=== PATIENT | female | born 1950 | race Two or more races ===

== ENCOUNTER 2023-09-30 12:42 | Inpatient (IN) | payer MEDICAID, OTHER ==
[~2023-09-30] VITALS: Ht 134.6 cm; Wt 55.0 kg
[2023-09-30 17:19] LABS: Urine Bacteria None Seen /hpf (None Seen)
[2023-09-30 17:27] LABS: Alanine Aminotransferase 29 U/L (7-40); Alkaline Phosphatase 94 U/L (46-116); Anion Gap 5 (5-15); Aspartate Aminotransferase 24 U/L (13-40); BUN/Creatinine Ratio 17.7 (10.0-20.0); Bilirubin, Total 0.3 mg/dL (0.2-1.0); Blood Urea Nitrogen 11 mg/dL (9-23); Calcium 8.7 mg/dL (8.7-10.4); Carbon Dioxide 25 mmol/L (20-30); Chloride 88 mmol/L (98-107); Glucose 242 mg/dL (74-106); Potassium 4.8 mmol/L (3.5-5.1); Total Protein 6.5 g/dL (5.7-8.2)
[2023-09-30 17:38] LABS: Lactic Acid w/Reflex 2.2 mmol/L (0.4-2.0); Sodium 118 mmol/L (136-145)
[2023-09-30 17:40] LABS: Urine Blood Negative /uL (Negative); Urine Clarity Clear (Clear); Urine Color Light-Yellow (Yellow); Urine Mucus FEW (None Seen); Urine Protein, UAD Negative (Negative); Urine Specific Gravity 1.016 (1.001-1.035); Urine Urobilinogen Normal (Negative); Urine WBC 2 /hpf (0 - 5)
[2023-09-30 17:48] LABS: Lipase 35 U/L (12-53)
[2023-09-30 18:18] VITALS: PULSE 82; RESP 18; O2SAT 97
[2023-09-30] MEDS: SODIUM CHL 3% 50 ML IV ONE (18:24)
[2023-09-30 18:56] LABS: Basophils # (auto) 0 10 ^3/uL (0-0.2); Basophils % (auto) 0.4 % (0.0-2.0); Eosinophils # (auto) 0 10 ^3/uL (0-0.8); Hematocrit 27.9 % (36.0-46.0); Hemoglobin 9.9 g/dL (12.2-16.2); Lymphocytes # (auto) 2.5 10 ^3/uL (0.4-5.4); Lymphocytes % (auto) 23.8 % (10.0-50.0); Mean Corpuscular Hgb Conc. 35.5 g/dL (32.0-36.0); Mean Corpuscular Volume 92.9 fL (80.0-100.0); Monocytes # (auto) 0.7 10 ^3/uL (0-1.3); Monocytes % (auto) 6.7 % (0.0-12.0); Neutrophils # (auto) 7.2 10 ^3/uL (1.6-8.6); Neutrophils % (auto) 69.1 % (37.0-80.0); Nucleated Red Blood Cells % 0.1 %; Red Cell Distribution Width 14.5 % (11.8-14.3); White Blood Cell 10.4 10^3/uL (4.4-10.8)
[2023-09-30 19:15] VITALS: O2SAT 97
[2023-09-30] MEDS: LOSARTAN POTASSIUM 50 MG TAB PO ONE (20:43)
[2023-09-30] MEDS ORDERED: MORPHINE SULFATE INJ 2 MG/ml SYRG IV PRN (21:00)
[2023-09-30] MEDS ORDERED: ONDANSETRON HCL 4 MG/2 ML VIAL IV PRN (21:00)
[2023-09-30] MEDS ORDERED: NITROGLYCERIN 0.4 MG SL TAB SL PRN (21:00)
[2023-09-30] MEDS: SODIUM CHLORIDE 0.9% 1,000 ML IV SCH (21:59)
[2023-09-30] MEDS: ASCORBIC ACID 500 MG TAB PO SCH (22:00)
[2023-09-30] MEDS: SODIUM CHLORIDE 1 GM TAB PO ONE (22:38)
[2023-10-01 05:56] LABS: Basophils # (auto) 0.1 10 ^3/uL (0-0.2); Basophils % (auto) 0.7 % (0.0-2.0); Eosinophils # (auto) 0 10 ^3/uL (0-0.8); Eosinophils % (auto) 0.3 % (0.0-7.0); Hematocrit 28.4 % (36.0-46.0); Lymphocytes # (auto) 3.3 10 ^3/uL (0.4-5.4); Lymphocytes % (auto) 30.6 % (10.0-50.0); Mean Corpuscular Hemoglobin 33.3 pg (28.0-32.0); Mean Corpuscular Hgb Conc. 35.4 g/dL (32.0-36.0); Mean Corpuscular Volume 94.3 fL (80.0-100.0); Monocytes # (auto) 0.9 10 ^3/uL (0-1.3); Monocytes % (auto) 8.8 % (0.0-12.0); Neutrophils # (auto) 6.4 10 ^3/uL (1.6-8.6); Neutrophils % (auto) 59.6 % (37.0-80.0); Nucleated Red Blood Cells % 0.1 %; Red Blood Cells 3.01 10^6/uL (4.0-5.20); Red Cell Distribution Width 14.6 % (11.8-14.3); White Blood Cell 10.8 10^3/uL (4.4-10.8)
[2023-10-01 06:15] LABS: Alanine Aminotransferase 26 U/L (7-40); Albumin 3.4 g/dL (3.2-4.8); Alkaline Phosphatase 79 U/L (46-116); Anion Gap 7 (5-15); Calcium 8.3 mg/dL (8.7-10.4); Carbon Dioxide 25 mmol/L (20-30); Chloride 92 mmol/L (98-107); Glucose 104 mg/dL (74-106); Potassium 3.8 mmol/L (3.5-5.1)
[2023-10-01 06:16] LABS: Aspartate Aminotransferase 19 U/L (13-40); Bilirubin, Total 0.3 mg/dL (0.2-1.0); Total Protein 5.7 g/dL (5.7-8.2)
[2023-10-01 06:49] LABS: Sodium 124 mmol/L (136-145)
[2023-10-01 06:50] LABS: BUN/Creatinine Ratio 10.9 (10.0-20.0); Blood Urea Nitrogen < 5 mg/dL (9-23)
[2023-10-01 08:00] VITALS: PULSE 87; RESP 20; O2SAT 99
[2023-10-01] MEDS: MULTIPLE VITAMIN TAB PO SCH (10:51)
[2023-10-01] MEDS: LOSARTAN POTASSIUM 50 MG TAB PO SCH (10:52)
[2023-10-01 16:10] VITALS: PULSE 103; RESP 19; O2SAT 94
[2023-10-01 16:22] VITALS: BP 159/54; PULSE 103; RESP 19; TEMP 97.7; O2SAT 94
[2023-10-01] MEDS: hydrALAZINE HCL 20 MG/ML VL IV PRN (16:27)
[2023-10-01] MEDS ORDERED: LOSA-534 PO (18:14)
[2023-10-01] MEDS ORDERED: PRE5T PO (18:14)
[2023-10-01] MEDS ORDERED: ZINC50TA27 PO (18:14)
[2023-10-01] MEDS ORDERED: METF-370 PO (18:14)
[2023-10-01] MEDS ORDERED: DEXTROSE (50%) 50ML SYRG IV PRN (19:15)
[2023-10-01 20:00] VITALS: PULSE 112; PULSE 123; RESP 18; O2SAT 98
[2023-10-01 21:00] VITALS: BP 129/41; PULSE 117; RESP 18; TEMP 98.1; O2SAT 96
[2023-10-01] MEDS: ENOXAPARIN SOD 40 MG/0.4 ML SYRINGE SC SCH (21:38)
[2023-10-01] MEDS: ACCU-CHEK COMFORT CURVE STRIP VI SCH (21:39)
[2023-10-01] MEDS: InsuLIN REG 1unit/0.01ml Soln (100units/ml) SC SCH (23:11)
[2023-10-02] VITALS (10 sets, daily range): BP systolic 105–180; BP diastolic 44–70; PULSE 100–112; RESP 17–22; TEMP 97.3–98.7; O2SAT 92–99
[2023-10-02] MEDS: ACETAMINOPHEN 325 MG TAB PO PRN (10:39)
[2023-10-02] MEDS: UREA 15gm PO Powder PKG PO SCH (11:41)
[2023-10-02] MEDS ORDERED: Ensure HIGH Protein Chocolate 8oz Bottle PO SCH (18:00)
[2023-10-02] MEDS: ACCU-CHEK COMFORT CURVE STRIP VI SCH (18:19)
[2023-10-02] MEDS: InsuLIN REG 1unit/0.01ml Soln (100units/ml) SC SCH (18:20)
[2023-10-02] MEDS: Glucerna Carbsteady SHAKE Vanilla 8oz PO SCH (18:20)
[2023-10-02] MEDS ORDERED: metFORMIN HYDROCHLORIDE 500 MG TAB PO SCH (22:00)
[2023-10-03] VITALS (9 sets, daily range): BP systolic 135–170; BP diastolic 48–85; PULSE 101–117; RESP 17–20; TEMP 97.4–98.7; O2SAT 92–98
[2023-10-03 07:05] LABS: Anion Gap 8 (5-15); Carbon Dioxide 25 mmol/L (20-30); Chloride 90 mmol/L (98-107); Potassium 3.2 mmol/L (3.5-5.1); Sodium 123 mmol/L (136-145)
[2023-10-03 07:06] LABS: Calcium 9.8 mg/dL (8.7-10.4)
[2023-10-03 07:11] LABS: BUN/Creatinine Ratio 55.6 (10.0-20.0); Blood Urea Nitrogen 30 mg/dL (9-23); Glucose 194 mg/dL (74-106)
[2023-10-03] MEDS: LOSARTAN POTASSIUM 50 MG TAB PO SCH (09:25)
[2023-10-03] MEDS: predniSONE 5 MG TAB PO SCH (09:25)
[2023-10-03] MEDS: ZINC 50 MG PO SCH (12:42)
[2023-10-03] MEDS: POTASSIUM CHL 20 Meq TABLET PO ONE (12:42)
[2023-10-03] MEDS: [UNRECOGNIZED DRUG - OTHER] PO SCH (12:42)
[2023-10-03 14:10] LABS: Chloride 87 mmol/L (98-107); Potassium 3.4 mmol/L (3.5-5.1); Sodium 123 mmol/L (136-145)
[2023-10-03 14:11] LABS: Anion Gap 10 (5-15); Calcium 10.3 mg/dL (8.7-10.4); Carbon Dioxide 26 mmol/L (20-30)
[2023-10-03 14:16] LABS: BUN/Creatinine Ratio 39.3 (10.0-20.0); Blood Urea Nitrogen 24 mg/dL (9-23); Glucose 255 mg/dL (74-106)
[2023-10-04] VITALS (7 sets, daily range): BP systolic 115–148; BP diastolic 59–79; PULSE 99–116; RESP 16–20; TEMP 97.7–98.8; O2SAT 95–98
[2023-10-04 06:20] LABS: Chloride 91 mmol/L (98-107); Potassium 4.5 mmol/L (3.5-5.1); Sodium 125 mmol/L (136-145)
[2023-10-04 06:21] LABS: Anion Gap 8 (5-15); Calcium 10.7 mg/dL (8.7-10.4); Carbon Dioxide 26 mmol/L (20-30)
[2023-10-04 06:26] LABS: BUN/Creatinine Ratio 61.7 (10.0-20.0); Glucose 194 mg/dL (74-106)
[2023-10-04 06:27] LABS: Blood Urea Nitrogen 37 mg/dL (9-23)
[2023-10-04] MEDS ORDERED: GLIM4TAB42 PO (14:03)
[2023-10-04] MEDS ORDERED: PYRI60TA3 PO (14:10)
[2023-10-04] MEDS ORDERED: NAPR-957 PO (14:11)
[2023-10-04] MEDS: PYRIDOstigmine BROMIDE 60 MG TAB PO SCH (17:36)
[2023-10-05 01:15] VITALS: BP 144/60; PULSE 102; RESP 17; TEMP 97.4; O2SAT 97
[2023-10-05 05:10] VITALS: BP 141/37; PULSE 94; RESP 16; TEMP 97.7; O2SAT 95
[2023-10-05 07:29] LABS: Chloride 94 mmol/L (98-107); Potassium 3.9 mmol/L (3.5-5.1); Sodium 129 mmol/L (136-145)
[2023-10-05 07:30] LABS: Anion Gap 7 (5-15); Calcium 10.4 mg/dL (8.7-10.4); Carbon Dioxide 28 mmol/L (20-30)
[2023-10-05 07:35] LABS: BUN/Creatinine Ratio 58.5 (10.0-20.0); Blood Urea Nitrogen 38 mg/dL (9-23); Glucose 159 mg/dL (74-106)
[2023-10-05 08:00] VITALS: PULSE 82; PULSE 90; RESP 17; O2SAT 97
[2023-10-05 09:00] VITALS: BP 122/63; PULSE 90; RESP 17; TEMP 98; O2SAT 97
[2023-10-05] MEDS: GLIMEPIRIDE 2 MG TAB PO SCH (10:04)
[2023-10-05] MEDS: METOPROLOL TARTRATE 25 MG TAB PO SCH (12:39)
[2023-10-05 13:00] VITALS: BP 113/60; PULSE 101; RESP 15; TEMP 98.3; O2SAT 97
[2023-10-05] MEDS ORDERED: LIDO5DIS21 TOP (15:36)
[2023-10-05 16:37] VITALS: BP 138/68; PULSE 82; RESP 17; TEMP 98.4; O2SAT 96
== END 2023-10-05 17:55 | disposition home or self-care (01) | DRG 426 ==
LOC: ER 12:42 → TELE 21:05 → TELE-EAST 10-01 15:33
PROVIDERS: ADMIT Internal Medicine; ATTEND Nurse Practitioner Acute Care
DX: E22.2 Syndrome of inappropriate secretion of antidiuretic hormone (principal); G70.00 Myasthenia gravis without (acute) exacerbation; M48.56XA Collapsed vertebra, not elsewhere classified, lumbar region, initial encounter for fracture; D64.9 Anemia, unspecified; E11.9 Type 2 diabetes mellitus without complications; E66.9 Obesity, unspecified; E78.5 Hyperlipidemia, unspecified; E86.1 Hypovolemia; I10 Essential (primary) hypertension; E87.6 Hypokalemia; Z79.52 Long term (current) use of systemic steroids; Z68.30 Body mass index [BMI] 30.0-30.9, adult
CPT/HCPCS: 36415; 71045; 80048; 80053; 81001; 82533; 82962; 83036; 83605; 83690; 83930; 83935; 84295; 84300; 84443; 84484; 84550; 85025; 93005; 96360; 97110; 97116; 97163; 97530; G0378; J1815

== ENCOUNTER 2023-11-24 15:56 | Inpatient (IN) | payer MEDICAID ==
[~2023-11-24] VITALS: Ht 144.8 cm; Wt 50.9 kg
[~2023-11-24 15:56] MED LIST: GLIM4TAB42 PO; LIDO5DIS21 TOP; LOSA-534 PO; METF-370 PO; NAPR-957 PO; PRE5T PO; PYRI60TA3 PO; ZINC50TA27 PO
[2023-11-24] MEDS: ONDANSETRON ODT 4 MG TAB PO ONE (17:21)
[2023-11-24] MEDS: DICYCLOMINE HCL (10MG/ML) 2 ML AMPULE IM ONE (17:21)
[2023-11-24 18:02] LABS: Basophils # (auto) 0 10 ^3/uL (0-0.2); Basophils % (auto) 0.3 % (0.0-2.0); Eosinophils # (auto) 0 10 ^3/uL (0-0.8); Eosinophils % (auto) 0.1 % (0.0-7.0); Hematocrit 38.5 % (36.0-46.0); Hemoglobin 11.9 g/dL (12.2-16.2); Lymphocytes # (auto) 1.2 10 ^3/uL (0.4-5.4); Lymphocytes % (auto) 7.9 % (10.0-50.0); Mean Corpuscular Hemoglobin 28.5 pg (28.0-32.0); Mean Corpuscular Volume 91.9 fL (80.0-100.0); Monocytes # (auto) 0.8 10 ^3/uL (0-1.3); Monocytes % (auto) 5.3 % (0.0-12.0); Neutrophils # (auto) 12.7 10 ^3/uL (1.6-8.6); Neutrophils % (auto) 86.4 % (37.0-80.0); Platelet Count (auto) 381 10^3/uL (140-450); Red Blood Cells 4.19 10^6/uL (4.0-5.20); Red Cell Distribution Width 16.5 % (11.8-14.3); White Blood Cell 14.6 10^3/uL (4.4-10.8)
[2023-11-24 18:08] LABS: Alanine Aminotransferase 41 U/L (7-40); Albumin 4.4 g/dL (3.2-4.8); Alkaline Phosphatase 135 U/L (46-116); Anion Gap 13 (5-15); Aspartate Aminotransferase 53 U/L (13-40); BUN/Creatinine Ratio 19.4 (10.0-20.0); Blood Urea Nitrogen 18 mg/dL (9-23); Calcium 9.6 mg/dL (8.7-10.4); Carbon Dioxide 18 mmol/L (20-30); Chloride 100 mmol/L (98-107); Glucose 192 mg/dL (74-106); Lipase 58 U/L (12-53); Potassium 4.8 mmol/L (3.5-5.1); Sodium 131 mmol/L (136-145)
[2023-11-24 18:09] LABS: Bilirubin, Total 0.2 mg/dL (0.2-1.0); Total Protein 7.2 g/dL (5.7-8.2)
[2023-11-24 18:32] LABS: Lactic Acid w/Reflex 7.5 mmol/L (0.4-2.0)
[2023-11-24 22:00] LABS: Urine Bacteria FEW /hpf (None Seen); Urine Blood Negative /uL (Negative); Urine Clarity Turbid (Clear); Urine Color Yellow (Yellow); Urine Mucus FEW (None Seen); Urine Protein, UAD 1+ (Negative); Urine Specific Gravity 1.022 (1.001-1.035); Urine Urobilinogen Normal (Negative); Urine WBC 7 /hpf (0 - 5)
[2023-11-24] MEDS: SODIUM CHLORIDE 0.9% 1,000 ML IV ONE (22:23)
[2023-11-24] MEDS: cefTRIAXone 1GM/50ML D5W 50 ML IV ONE (22:58)
[2023-11-25] VITALS (7 sets, daily range): BP systolic 139–159; BP diastolic 60–81; PULSE 83–103; RESP 16–18; TEMP 97.7–98.4; O2SAT 92–99
[2023-11-25] MEDS ORDERED: ACETAMINOPHEN 325 MG TAB PO PRN (03:15)
[2023-11-25] MEDS ORDERED: HYDROcodone-ACET 5/325MG TAB PO PRN (03:15)
[2023-11-25] MEDS ORDERED: ONDANSETRON HCL 4 MG/2 ML VIAL IV PRN (03:15)
[2023-11-25] MEDS ORDERED: MORPHINE SULFATE INJ 2 MG/ml SYRG IV PRN (03:15)
[2023-11-25] MEDS ORDERED: DOCUSATE SOD 100 MG CAP PO PRN (03:15)
[2023-11-25] MEDS ORDERED: DEXTROSE (50%) 50ML SYRG IV PRN (03:15)
[2023-11-25] MEDS ORDERED: IBUPROFEN 600 MG TAB PO PRN (03:15)
[2023-11-25] MEDS ORDERED: NITROGLYCERIN 0.4 MG SL TAB SL PRN (03:15)
[2023-11-25] MEDS: SODIUM CHLORIDE 0.9% 500 ML IV ONE (03:30)
[2023-11-25 04:10] LABS: Basophils # (auto) 0.1 10 ^3/uL (0-0.2); Basophils % (auto) 0.8 % (0.0-2.0); Eosinophils # (auto) 0 10 ^3/uL (0-0.8); Eosinophils % (auto) 0.2 % (0.0-7.0); Hematocrit 32.2 % (36.0-46.0); Hemoglobin 10.4 g/dL (12.2-16.2); Lymphocytes % (auto) 35.3 % (10.0-50.0); Mean Corpuscular Hemoglobin 28.8 pg (28.0-32.0); Mean Corpuscular Hgb Conc. 32.4 g/dL (32.0-36.0); Mean Corpuscular Volume 88.9 fL (80.0-100.0); Monocytes # (auto) 0.7 10 ^3/uL (0-1.3); Monocytes % (auto) 6.1 % (0.0-12.0); Neutrophils # (auto) 6.5 10 ^3/uL (1.6-8.6); Neutrophils % (auto) 57.6 % (37.0-80.0); Nucleated Red Blood Cells % 0.2 %; Platelet Count (auto) 388 10^3/uL (140-450); Red Blood Cells 3.62 10^6/uL (4.0-5.20); Red Cell Distribution Width 17.1 % (11.8-14.3); White Blood Cell 11.4 10^3/uL (4.4-10.8)
[2023-11-25 04:14] LABS: Alanine Aminotransferase 32 U/L (7-40); Alkaline Phosphatase 107 U/L (46-116); Anion Gap 5 (5-15); Aspartate Aminotransferase 25 U/L (13-40); BUN/Creatinine Ratio 26.5 (10.0-20.0); Bilirubin, Total < 0.2 mg/dL (0.2-1.0); Blood Urea Nitrogen 18 mg/dL (9-23); Calcium 8.9 mg/dL (8.7-10.4); Carbon Dioxide 25 mmol/L (20-30); Chloride 105 mmol/L (98-107); Glucose 101 mg/dL (74-106); Potassium 4.2 mmol/L (3.5-5.1); Sodium 135 mmol/L (136-145); Total Protein 6.6 g/dL (5.7-8.2)
[2023-11-25] MEDS: SODIUM CHLORIDE 0.9% 1,000 ML IV SCH (05:33)
[2023-11-25] MEDS: metroNIDAZOLE 500MG/100ML 100 ML IV SCH (06:43)
[2023-11-25] MEDS: ACCU-CHEK COMFORT CURVE STRIP VI SCH (06:49)
[2023-11-25] MEDS: InsuLIN REG 1unit/0.01ml Soln (100units/ml) SC SCH ×2 (06:49→21:38)
[2023-11-25] MEDS ORDERED: LOSA-533 PO (07:02)
[2023-11-25] MEDS: PANTOPRAZOLE 40 MG/10 ML VIAL INJ IV SCH (09:23)
[2023-11-25] MEDS: PYRIDOstigmine BROMIDE 60 MG TAB PO ONE (15:30)
[2023-11-25] MEDS: predniSONE 5 MG TAB PO ONE (16:49)
[2023-11-25] MEDS: LOSARTAN POTASSIUM 25 MG TAB PO ONE (16:49)
[2023-11-25] MEDS: PYRIDOstigmine BROMIDE 60 MG TAB PO SCH (17:24)
[2023-11-26] MEDS: cefTRIAXone 1GM/50ML D5W 50 ML IV SCH (00:51)
[2023-11-26 01:00] VITALS: BP 136/84; PULSE 88; RESP 18; TEMP 98.3; O2SAT 95
[2023-11-26 04:58] VITALS: BP 158/82; PULSE 90; RESP 16; TEMP 97.6; O2SAT 94
[2023-11-26 07:29] LABS: Alanine Aminotransferase 26 U/L (7-40); Alkaline Phosphatase 105 U/L (46-116); Anion Gap 7 (5-15); BUN/Creatinine Ratio 16.4 (10.0-20.0); Basophils # (auto) 0.1 10 ^3/uL (0-0.2); Basophils % (auto) 0.6 % (0.0-2.0); Blood Urea Nitrogen 11 mg/dL (9-23); Calcium 9.5 mg/dL (8.7-10.4); Carbon Dioxide 27 mmol/L (20-30); Chloride 106 mmol/L (98-107); Eosinophils # (auto) 0.1 10 ^3/uL (0-0.8); Eosinophils % (auto) 0.5 % (0.0-7.0); Glucose 111 mg/dL (74-106); Hematocrit 32.4 % (36.0-46.0); Hemoglobin 10.9 g/dL (12.2-16.2); Lymphocytes # (auto) 3.9 10 ^3/uL (0.4-5.4); Lymphocytes % (auto) 39.3 % (10.0-50.0); Mean Corpuscular Hemoglobin 28.9 pg (28.0-32.0); Mean Corpuscular Hgb Conc. 33.5 g/dL (32.0-36.0); Mean Corpuscular Volume 86.3 fL (80.0-100.0); Monocytes # (auto) 0.7 10 ^3/uL (0-1.3); Monocytes % (auto) 6.7 % (0.0-12.0); Neutrophils # (auto) 5.2 10 ^3/uL (1.6-8.6); Neutrophils % (auto) 52.9 % (37.0-80.0); Nucleated Red Blood Cells % 0.1 %; Platelet Count (auto) 419 10^3/uL (140-450); Potassium 3.5 mmol/L (3.5-5.1); Red Blood Cells 3.76 10^6/uL (4.0-5.20); Red Cell Distribution Width 16.8 % (11.8-14.3); Sodium 140 mmol/L (136-145); White Blood Cell 9.8 10^3/uL (4.4-10.8)
[2023-11-26 07:30] LABS: Albumin 4.1 g/dL (3.2-4.8); Aspartate Aminotransferase 17 U/L (13-40)
[2023-11-26 07:31] LABS: Bilirubin, Total < 0.2 mg/dL (0.2-1.0); Total Protein 6.5 g/dL (5.7-8.2)
[2023-11-26 08:00] VITALS: PULSE 101
[2023-11-26 08:56] VITALS: BP 143/71; PULSE 91; RESP 16; TEMP 98; O2SAT 94
[2023-11-26] MEDS: predniSONE 5 MG TAB PO SCH (09:39)
[2023-11-26] MEDS: LOSARTAN POTASSIUM 25 MG TAB PO SCH (09:39)
[2023-11-26 13:00] VITALS: BP 158/81; PULSE 94; RESP 18; TEMP 97.8; O2SAT 95
[2023-11-26] MEDS ORDERED: METR-344 PO (14:01)
[2023-11-26] MEDS ORDERED: LEVO500T91 PO (14:01)
[2023-11-26] MEDS ORDERED: LOPE-20 PO (14:01)
== END 2023-11-26 15:30 | disposition home or self-care (01) | DRG 249 ==
LOC: ER 15:56 → TELE 11-25 03:17 → TELE-WESTW 11-25 03:17
PROVIDERS: ADMIT Internal Medicine; ATTEND Internal Medicine
DX: A09 Infectious gastroenteritis and colitis, unspecified (principal); E87.20 Acidosis, unspecified; G70.00 Myasthenia gravis without (acute) exacerbation; R65.10 Systemic inflammatory response syndrome (SIRS) of non-infectious origin without acute organ dysfunction; E87.1 Hypo-osmolality and hyponatremia; I10 Essential (primary) hypertension; N39.0 Urinary tract infection, site not specified; E78.5 Hyperlipidemia, unspecified; E11.65 Type 2 diabetes mellitus with hyperglycemia; Z79.4 Long term (current) use of insulin; Z79.899 Other long term (current) drug therapy
CPT/HCPCS: 36415; 74176; 80053; 81001; 82962; 83605; 83690; 84484; 85025; 87086; 93005; 96361; 96365; 96372; G0378; J1815; J2470; J3490; Q0162

== ENCOUNTER 2023-11-29 11:57 | Inpatient (IN) | payer MEDICAID ==
[~2023-11-29] VITALS: Ht 144.8 cm; Wt 52.0 kg
[~2023-11-29 11:57] MED LIST changes: -GLIM4TAB42 PO; +LEVO500T91 PO; -LIDO5DIS21 TOP; +LOPE-20 PO; +LOSA-533 PO; -LOSA-534 PO; +METR-344 PO; -NAPR-957 PO; -ZINC50TA27 PO
[2023-11-29 14:44] LABS: Basophils # (auto) 0 10 ^3/uL (0-0.2); Basophils % (auto) 0.3 % (0.0-2.0); Eosinophils # (auto) 0 10 ^3/uL (0-0.8); Hematocrit 34.3 % (36.0-46.0); Hemoglobin 11.2 g/dL (12.2-16.2); Lymphocytes # (auto) 2.1 10 ^3/uL (0.4-5.4); Lymphocytes % (auto) 22.6 % (10.0-50.0); Mean Corpuscular Hemoglobin 28.1 pg (28.0-32.0); Mean Corpuscular Hgb Conc. 32.7 g/dL (32.0-36.0); Mean Corpuscular Volume 85.8 fL (80.0-100.0); Monocytes # (auto) 0.5 10 ^3/uL (0-1.3); Monocytes % (auto) 5.5 % (0.0-12.0); Neutrophils # (auto) 6.6 10 ^3/uL (1.6-8.6); Neutrophils % (auto) 71.6 % (37.0-80.0); Platelet Count (auto) 395 10^3/uL (140-450); Red Cell Distribution Width 16.8 % (11.8-14.3); White Blood Cell 9.3 10^3/uL (4.4-10.8)
[2023-11-29 15:11] LABS: Alanine Aminotransferase 26 U/L (7-40); Albumin 4.2 g/dL (3.2-4.8); Alkaline Phosphatase 111 U/L (46-116); Anion Gap 11 (5-15); Aspartate Aminotransferase 18 U/L (13-40); BUN/Creatinine Ratio 25.7 (10.0-20.0); Blood Urea Nitrogen 18 mg/dL (9-23); Calcium 9.6 mg/dL (8.7-10.4); Carbon Dioxide 24 mmol/L (20-30); Chloride 98 mmol/L (98-107); Glucose 233 mg/dL (74-106); Potassium 4.1 mmol/L (3.5-5.1)
[2023-11-29 15:12] LABS: Bilirubin, Total 0.2 mg/dL (0.2-1.0); Total Protein 6.4 g/dL (5.7-8.2)
[2023-11-29 15:13] LABS: Sodium 133 mmol/L (136-145)
[2023-11-29] MEDS ORDERED: ACETAMINOPHEN 325 MG TAB PO PRN (18:00)
[2023-11-29] MEDS ORDERED: DEXTROSE (50%) 50ML SYRG IV PRN (18:00)
[2023-11-29] MEDS: ACCU-CHEK COMFORT CURVE STRIP VI SCH (18:27)
[2023-11-29] MEDS: InsuLIN REG 1unit/0.01ml Soln (100units/ml) SC SCH (18:29)
[2023-11-29] MEDS: SODIUM CHLORIDE 0.9% 1,000 ML IV SCH (18:37)
[2023-11-29] MEDS: ONDANSETRON HCL 4 MG/2 ML VIAL IV ONE (19:05)
[2023-11-29] MEDS: SODIUM CHLORIDE 0.9% 1,000 ML IV ONE (19:05)
[2023-11-29] MEDS ORDERED: NITROGLYCERIN 0.4 MG SL TAB SL PRN (19:15)
[2023-11-29] MEDS ORDERED: MORPHINE SULFATE INJ 2 MG/ml SYRG IV PRN (19:15)
[2023-11-29 19:34] LABS: Urine Bacteria FEW /hpf (None Seen); Urine Blood Negative /uL (Negative); Urine Clarity Turbid (Clear); Urine Color Yellow (Yellow); Urine Mucus FEW (None Seen); Urine Protein, UAD 1+ (Negative); Urine Specific Gravity 1.028 (1.001-1.035); Urine Urobilinogen Normal (Negative); Urine WBC 51 /hpf (0 - 5); Urine pH 5.5 (5.0-9.0)
[2023-11-29 23:37] VITALS: BP 126/61; PULSE 85; PULSE 87; RESP 17; RESP 18; O2SAT 96; O2SAT 97
[2023-11-29 23:55] VITALS: BP 126/61; PULSE 85; RESP 18; TEMP 98; O2SAT 96
[2023-11-30] VITALS (7 sets, daily range): BP systolic 134–152; BP diastolic 53–86; PULSE 87–117; RESP 16–22; TEMP 97.5–99.4; O2SAT 94–100
[2023-11-30 06:07] LABS: Basophils # (auto) 0.1 10 ^3/uL (0-0.2); Basophils % (auto) 0.9 % (0.0-2.0); Eosinophils # (auto) 0.1 10 ^3/uL (0-0.8); Eosinophils % (auto) 0.7 % (0.0-7.0); Hematocrit 32.6 % (36.0-46.0); Hemoglobin 10.8 g/dL (12.2-16.2); Lymphocytes # (auto) 3.5 10 ^3/uL (0.4-5.4); Lymphocytes % (auto) 36.9 % (10.0-50.0); Mean Corpuscular Hemoglobin 28.8 pg (28.0-32.0); Monocytes # (auto) 0.8 10 ^3/uL (0-1.3); Monocytes % (auto) 8.4 % (0.0-12.0); Neutrophils % (auto) 53.1 % (37.0-80.0); Nucleated Red Blood Cells % 0.1 %; Platelet Count (auto) 384 10^3/uL (140-450); Red Blood Cells 3.75 10^6/uL (4.0-5.20); White Blood Cell 9.4 10^3/uL (4.4-10.8)
[2023-11-30 06:28] LABS: Alanine Aminotransferase 20 U/L (7-40); Alkaline Phosphatase 95 U/L (46-116); Anion Gap 7 (5-15); BUN/Creatinine Ratio 18.9 (10.0-20.0); Blood Urea Nitrogen 10 mg/dL (9-23); Calcium 9.2 mg/dL (8.7-10.4); Carbon Dioxide 25 mmol/L (20-30); Chloride 103 mmol/L (98-107); Glucose 108 mg/dL (74-106); Potassium 2.7 mmol/L (3.5-5.1); Sodium 135 mmol/L (136-145)
[2023-11-30 06:29] LABS: Albumin 4.1 g/dL (3.2-4.8); Aspartate Aminotransferase 16 U/L (13-40)
[2023-11-30 06:30] LABS: Bilirubin, Total 0.2 mg/dL (0.2-1.0); Total Protein 6.5 g/dL (5.7-8.2)
[2023-11-30] MEDS: POTASSIUM CHL 20MEQ/100ML 100 ML IV ONE ×2 (13:11→15:11)
[2023-11-30] MEDS ORDERED: DOCUSATE SOD 100 MG CAP PO PRN (13:45)
[2023-11-30] MEDS: ONDANSETRON HCL 4 MG/2 ML VIAL IV PRN (17:22)
[2023-11-30] MEDS: MUPIROCIN 2% OINT 15gm or 22gm FOR MRSA NARES EACHNOSTRI SCH (22:00)
[2023-12-01] VITALS (8 sets, daily range): BP systolic 126–141; BP diastolic 54–81; PULSE 80–133; RESP 16–21; TEMP 97.9–98.9; O2SAT 93–100
[2023-12-01] MEDS ORDERED: MIDAZOLAM HCL 5 MG/ML-1ML VIAL ONE (09:24)
[2023-12-01] MEDS ORDERED: SODIUM CHLORIDE LOCK 10 ML ONE (09:24)
[2023-12-01] MEDS ORDERED: NALOXONE HCL 0.4 MG/ML VIAL ONE (09:24)
[2023-12-01] MEDS ORDERED: diphenhdrAMINE HCL 50 MG/1 ML VL ONE (09:24)
[2023-12-01] MEDS ORDERED: FLUMAZENIL 0.1 MG/ML INJ 10ML MDV IV ONE (09:24)
[2023-12-01] MEDS ORDERED: fentaNYL CITRATE 100 MCG/2 ML VL ONE (09:25)
[2023-12-01] MEDS ORDERED: LIDOCAINE VISCOUS 2% 15ML UD ONE (09:25)
[2023-12-01] MEDS: PYRIDOstigmine BROMIDE 60 MG TAB PO SCH (14:00)
[2023-12-01 14:20] LABS: Basophils # (auto) 0.1 10 ^3/uL (0-0.2); Basophils % (auto) 1.3 % (0.0-2.0); Eosinophils # (auto) 0 10 ^3/uL (0-0.8); Eosinophils % (auto) 0.6 % (0.0-7.0); Hematocrit 34.1 % (36.0-46.0); Hemoglobin 11.2 g/dL (12.2-16.2); Lymphocytes # (auto) 2.4 10 ^3/uL (0.4-5.4); Mean Corpuscular Hemoglobin 28.3 pg (28.0-32.0); Mean Corpuscular Hgb Conc. 32.8 g/dL (32.0-36.0); Mean Corpuscular Volume 86.2 fL (80.0-100.0); Monocytes # (auto) 0.6 10 ^3/uL (0-1.3); Monocytes % (auto) 7.6 % (0.0-12.0); Neutrophils # (auto) 4.8 10 ^3/uL (1.6-8.6); Neutrophils % (auto) 60.5 % (37.0-80.0); Platelet Count (auto) 374 10^3/uL (140-450); Red Blood Cells 3.96 10^6/uL (4.0-5.20); Red Cell Distribution Width 16.9 % (11.8-14.3)
[2023-12-01 14:33] LABS: Chloride 100 mmol/L (98-107); Potassium 3.3 mmol/L (3.5-5.1); Sodium 133 mmol/L (136-145)
[2023-12-01 14:34] LABS: Anion Gap 11 (5-15); Carbon Dioxide 22 mmol/L (20-31)
[2023-12-01 14:35] LABS: Calcium 8.6 mg/dL (8.7-10.4)
[2023-12-01 14:40] LABS: Glucose 132 mg/dL (74-106)
[2023-12-01 14:42] LABS: BUN/Creatinine Ratio 8.9 (10.0-20.0); Blood Urea Nitrogen < 5 mg/dL (9-23)
[2023-12-01] MEDS ORDERED: CLINIMIX PER PHARMACY 0 ML IV SCH (15:45)
[2023-12-01] MEDS: cefTRIAXone 1GM/50ML D5W 50 ML IV SCH (16:00)
[2023-12-01 16:51] LABS: Magnesium 1.5 mg/dL (1.6-2.6)
[2023-12-01] MEDS: MAGNESIUM SULFATE 1GM/100ML 100 ML IV ONE (18:15)
[2023-12-01] MEDS: POTASSIUM CHL 20MEQ/100ML 100 ML IV ONE (21:08)
[2023-12-01] MEDS: MORPHINE SULFATE INJ 2 MG/ml SYRG IV PRN (21:23)
[2023-12-02] VITALS (7 sets, daily range): BP systolic 99–133; BP diastolic 42–72; PULSE 92–129; RESP 16–17; TEMP 97–100; O2SAT 90–99
[2023-12-02] MEDS ORDERED: DEXTROSE (50%) 50ML SYRG IV SCH
[2023-12-02] MEDS: AMINO ACID INFUSION IN D10W 1,000 ML IV SCH (01:04)
[2023-12-02] MEDS: PANTOPRAZOLE 40 MG/10 ML VIAL INJ IV SCH (01:16)
[2023-12-02] MEDS: metroNIDAZOLE 500MG/100ML 100 ML IV SCH (01:23)
[2023-12-02] MEDS: ACCU-CHEK COMFORT CURVE STRIP VI SCH (02:17)
[2023-12-02] MEDS: InsuLIN REG 1unit/0.01ml Soln (100units/ml) SC SCH (02:31)
[2023-12-02] MEDS: EZ-GAS II GRANULES (RADIOLOGY USE) PO ONE (07:25)
[2023-12-02] MEDS: GASTROGRAFIN 120 ML SOL ONE (07:25)
[2023-12-02] MEDS: LOSARTAN POTASSIUM 25 MG TAB PO SCH (09:52)
[2023-12-02] MEDS: predniSONE 5 MG TAB PO SCH (09:53)
[2023-12-02] MEDS: metFORMIN HYDROCHLORIDE 500 MG TAB PO SCH (10:00)
[2023-12-02] MEDS: HYDROcodone-ACET 5/325MG TAB PO PRN (10:21)
[2023-12-02 10:54] LABS: Alanine Aminotransferase 20 U/L (7-40); Albumin 4.2 g/dL (3.2-4.8); Alkaline Phosphatase 104 U/L (46-116); Anion Gap 12 (5-15); Aspartate Aminotransferase 37 U/L (13-40); Bilirubin, Total 0.4 mg/dL (0.2-1.0); Calcium 9.1 mg/dL (8.7-10.4); Carbon Dioxide 21 mmol/L (20-31); Chloride 101 mmol/L (98-107); Glucose 143 mg/dL (74-106); Magnesium 1.7 mg/dL (1.6-2.6); Phosphorus 2.4 mg/dL (2.4-5.1); Potassium 4.1 mmol/L (3.5-5.1); Sodium 134 mmol/L (136-145); Total Protein 6.9 g/dL (5.7-8.2)
[2023-12-02 11:05] LABS: BUN/Creatinine Ratio 7.1 (10.0-20.0); Blood Urea Nitrogen < 5 mg/dL (9-23)
[2023-12-02] MEDS: SUCRALFATE 1 GM TAB PO SCH (11:30)
[2023-12-02] MEDS: SUCRALFATE 1 GM TAB PO ONE (12:32)
[2023-12-02 13:55] LABS: Basophils # (auto) 0 10 ^3/uL (0-0.2); Basophils % (auto) 0.5 % (0.0-2.0); Eosinophils # (auto) 0 10 ^3/uL (0-0.8); Eosinophils % (auto) 0.2 % (0.0-7.0); Hematocrit 31.4 % (36.0-46.0); Lymphocytes % (auto) 11.3 % (10.0-50.0); Mean Corpuscular Hgb Conc. 31.8 g/dL (32.0-36.0); Monocytes # (auto) 0.6 10 ^3/uL (0-1.3); Monocytes % (auto) 6.8 % (0.0-12.0); Neutrophils % (auto) 81.2 % (37.0-80.0); Platelet Count (auto) 327 10^3/uL (140-450); Red Blood Cells 3.57 10^6/uL (4.0-5.20); Red Cell Distribution Width 16.3 % (11.8-14.3); White Blood Cell 8.7 10^3/uL (4.4-10.8)
[2023-12-03 00:47] VITALS: BP 104/46; PULSE 80; RESP 17; TEMP 97.2; O2SAT 93
[2023-12-03 04:40] VITALS: BP 110/51; PULSE 92; RESP 17; TEMP 98.2; O2SAT 93
[2023-12-03 05:13] LABS: Alanine Aminotransferase 19 U/L (7-40); Albumin 3.8 g/dL (3.2-4.8); Alkaline Phosphatase 91 U/L (46-116); Anion Gap 7 (5-15); Aspartate Aminotransferase 18 U/L (13-40); BUN/Creatinine Ratio 10.4 (10.0-20.0); Blood Urea Nitrogen 7 mg/dL (9-23); Carbon Dioxide 26 mmol/L (20-31); Chloride 104 mmol/L (98-107); Glucose 166 mg/dL (74-106); Magnesium 1.8 mg/dL (1.6-2.6); Phosphorus 1.7 mg/dL (2.4-5.1); Potassium 3.3 mmol/L (3.5-5.1); Sodium 137 mmol/L (136-145); Total Protein 6.2 g/dL (5.7-8.2); Triglycerides 107 mg/dL (< 150)
[2023-12-03 05:14] LABS: Bilirubin, Total < 0.2 mg/dL (0.2-1.0)
[2023-12-03 09:00] VITALS: BP 137/56; PULSE 92; RESP 16; TEMP 98.2; O2SAT 95
[2023-12-03] MEDS: MAGNESIUM SULFATE 1GM/100ML 100 ML IV ONE (11:26)
[2023-12-03 13:00] VITALS: BP 110/54; PULSE 78; RESP 16; TEMP 97.8; O2SAT 95
[2023-12-03] MEDS: POTASSIUM PHOSPHATE 22 MEQ in SODIUM CHL 0.9% 100 ML IV ONE (14:53)
[2023-12-03] MEDS ORDERED: LOPERAMIDE HCL 2 MG CAP/TAB PO PRN (16:15)
[2023-12-03 17:00] VITALS: BP 119/50; PULSE 87; RESP 16; TEMP 97.6; O2SAT 99
[2023-12-03 21:00] VITALS: BP 125/58; PULSE 91; RESP 20; TEMP 99.6; O2SAT 97
[2023-12-04] VITALS (7 sets, daily range): BP systolic 93–163; BP diastolic 53–79; PULSE 90–111; RESP 18–20; TEMP 97.9–99.6; O2SAT 92–99
[2023-12-04 06:28] LABS: Chloride 107 mmol/L (98-107); Potassium 3.2 mmol/L (3.5-5.1); Sodium 138 mmol/L (136-145)
[2023-12-04 06:29] LABS: Anion Gap 11 (5-15); Carbon Dioxide 20 mmol/L (20-31)
[2023-12-04 06:35] LABS: GFR African American 113 mL/min; GFR Non-African American 93 mL/min; Glucose 124 mg/dL (74-106)
[2023-12-04 06:36] LABS: Albumin 3.9 g/dL (3.2-4.8)
[2023-12-04 06:37] LABS: Phosphorus 2.1 mg/dL (2.4-5.1)
[2023-12-04 06:40] LABS: BUN/Creatinine Ratio 7.6 (10.0-20.0); Blood Urea Nitrogen < 5 mg/dL (9-23)
[2023-12-04] MEDS: LOPERAMIDE HCL 2 MG CAP/TAB PO PRN (17:39)
[2023-12-05 01:00] VITALS: BP 151/64; PULSE 95; RESP 19; TEMP 98.5; O2SAT 94
[2023-12-05 05:00] VITALS: BP 154/67; PULSE 101; RESP 19; TEMP 97.9; O2SAT 94
[2023-12-05 08:00] VITALS: PULSE 102; PULSE 90; RESP 14
[2023-12-05 08:38] VITALS: BP 168/71; PULSE 102; RESP 14; TEMP 97.5; O2SAT 97
[2023-12-05] MEDS ORDERED: SUCR1TAB PO (12:14)
[2023-12-05] MEDS ORDERED: PANT40TA2 PO (12:14)
[2023-12-05 12:59] VITALS: BP 123/58; PULSE 111; RESP 14; TEMP 97.4; O2SAT 98
[2023-12-05 14:52] VITALS: BP 123/58
== END 2023-12-05 16:00 | disposition home or self-care (01) | DRG 241 ==
LOC: ER 11:57 → OVERFLOW 19:11 → WEST WING 23:35 → CENTRAL 11-30 21:35 → TELE-CENTR 12-02 01:21
PROVIDERS: ADMIT Nurse Practitioner Family; ATTEND Internal Medicine
PROC: 0DB68ZX Excision of Stomach, Via Natural or Artificial Opening Endoscopic, Diagnostic (ICD-10-PCS; 2023-12-01)
PROC: 0DB98ZX Excision of Duodenum, Via Natural or Artificial Opening Endoscopic, Diagnostic (ICD-10-PCS; principal; 2023-12-01 15:15)
DX: K25.9 Gastric ulcer, unspecified as acute or chronic, without hemorrhage or perforation (principal); G70.00 Myasthenia gravis without (acute) exacerbation; K22.10 Ulcer of esophagus without bleeding; E11.9 Type 2 diabetes mellitus without complications; K59.00 Constipation, unspecified; E78.5 Hyperlipidemia, unspecified; I10 Essential (primary) hypertension; K44.9 Diaphragmatic hernia without obstruction or gangrene
CPT/HCPCS: 36415; 43239; 74176; 74246; 80048; 80053; 80069; 81001; 82962; 83735; 84100; 84132; 84478; 84484; 85025; 87045; 87081; 87427; 87493; G0378; J1815; J2250; J2405; J2470; J3480; J3490

== ENCOUNTER 2023-12-15 13:53 | Inpatient (IN) | payer MEDICAID ==
[~2023-12-15] VITALS: Ht 149.9 cm; Wt 53.0 kg
[~2023-12-15 13:53] MED LIST changes: -LEVO500T91 PO; -LOPE-20 PO; -METR-344 PO; +PANT40TA2 PO; +SUCR1TAB PO
[2023-12-15 16:40] LABS: Basophils # (auto) 0.1 10 ^3/uL (0-0.2); Basophils % (auto) 0.6 % (0.0-2.0); Eosinophils # (auto) 0 10 ^3/uL (0-0.8); Eosinophils % (auto) 0.1 % (0.0-7.0); Hematocrit 34.3 % (36.0-46.0); Lymphocytes # (auto) 2.7 10 ^3/uL (0.4-5.4); Lymphocytes % (auto) 27.9 % (10.0-50.0); Mean Corpuscular Hemoglobin 27.1 pg (28.0-32.0); Mean Corpuscular Hgb Conc. 31.9 g/dL (32.0-36.0); Mean Corpuscular Volume 84.8 fL (80.0-100.0); Monocytes # (auto) 0.6 10 ^3/uL (0-1.3); Monocytes % (auto) 6.1 % (0.0-12.0); Neutrophils # (auto) 6.3 10 ^3/uL (1.6-8.6); Neutrophils % (auto) 65.3 % (37.0-80.0); Nucleated Red Blood Cells % 0.1 %; Platelet Count (auto) 606 10^3/uL (140-450); Red Blood Cells 4.05 10^6/uL (4.0-5.20); Red Cell Distribution Width 17.3 % (11.8-14.3); White Blood Cell 9.7 10^3/uL (4.4-10.8)
[2023-12-15 16:59] LABS: Alanine Aminotransferase 20 U/L (7-40); Alkaline Phosphatase 116 U/L (46-116); Anion Gap 10 (5-15); BUN/Creatinine Ratio 15.5 (10.0-20.0); Blood Urea Nitrogen 11 mg/dL (9-23); Calcium 9.8 mg/dL (8.7-10.4); Carbon Dioxide 23 mmol/L (20-31); Chloride 103 mmol/L (98-107); Glucose 156 mg/dL (74-106); Potassium 4.2 mmol/L (3.5-5.1); Sodium 136 mmol/L (136-145)
[2023-12-15 17:00] LABS: Albumin 4.2 g/dL (3.2-4.8); Aspartate Aminotransferase 17 U/L (13-40); Bilirubin, Total 0.2 mg/dL (0.2-1.0); Total Protein 7.1 g/dL (5.7-8.2)
[2023-12-15 17:24] LABS: Lactic Acid w/Reflex 4.4 mmol/L (0.4-2.0)
[2023-12-15 18:59] LABS: Urine Bacteria None Seen /hpf (None Seen)
[2023-12-15 19:25] LABS: Urine Blood Negative /uL (Negative); Urine Clarity Clear (Clear); Urine Color Light-Yellow (Yellow); Urine Hyaline Cast FEW /lpf (0 - 2); Urine Protein, UAD Negative (Negative); Urine Specific Gravity 1.014 (1.001-1.035); Urine Urobilinogen Normal (Negative); Urine WBC 5 /hpf (0 - 5); Urine pH 5.5 (5.0-9.0)
[2023-12-15] MEDS ORDERED: hydrALAZINE HCL 20 MG/ML VL IV PRN (22:15)
[2023-12-15] MEDS ORDERED: DOCUSATE SOD 100 MG CAP PO PRN (22:15)
[2023-12-15] MEDS ORDERED: ONDANSETRON HCL 4 MG/2 ML VIAL IV PRN (22:15)
[2023-12-15] MEDS ORDERED: DEXTROSE (50%) 50ML SYRG IV PRN (22:15)
[2023-12-15] MEDS: SODIUM CHLORIDE 0.9% 1,000 ML IV ONE ×2 (22:46→23:40)
[2023-12-15 23:00] VITALS: PULSE 87; RESP 15; O2SAT 96
[2023-12-15] MEDS ORDERED: MORPHINE SULFATE INJ 2 MG/ml SYRG IV PRN (23:30)
[2023-12-15] MEDS ORDERED: NITROGLYCERIN 0.4 MG SL TAB SL PRN (23:30)
[2023-12-16] VITALS (7 sets, daily range): BP systolic 111–145; BP diastolic 39–73; PULSE 92–115; RESP 16–23; TEMP 98–99.3; O2SAT 94–100
[2023-12-16] MEDS: cefTRIAXone 1GM/50ML D5W 50 ML IV ONE (04:15)
[2023-12-16] MEDS: SODIUM CHLOR 0.9% PF (SALINE LOCK) 10ML VIAL/SYR IV SCH (06:03)
[2023-12-16 06:10] LABS: Alanine Aminotransferase 19 U/L (7-40); Alkaline Phosphatase 96 U/L (46-116); Anion Gap 7 (5-15); Aspartate Aminotransferase 28 U/L (13-40); BUN/Creatinine Ratio 14.8 (10.0-20.0); Blood Urea Nitrogen 9 mg/dL (9-23); Carbon Dioxide 25 mmol/L (20-31); Chloride 108 mmol/L (98-107); Glucose 127 mg/dL (74-106); Potassium 4.4 mmol/L (3.5-5.1); Sodium 140 mmol/L (136-145)
[2023-12-16 06:11] LABS: Bilirubin, Total < 0.2 mg/dL (0.2-1.0); Total Protein 6.4 g/dL (5.7-8.2)
[2023-12-16] MEDS: ACCU-CHEK COMFORT CURVE STRIP VI SCH (06:55)
[2023-12-16] MEDS: InsuLIN REG 1unit/0.01ml Soln (100units/ml) SC SCH (06:56)
[2023-12-16] MEDS: PANTOPRAZOLE 40 MG/10 ML VIAL INJ IV SCH (08:42)
[2023-12-16] MEDS: ASPirin 81 mg TAB PO SCH (08:42)
[2023-12-16 10:15] LABS: Basophils # (auto) 0 10 ^3/uL (0-0.2); Basophils % (auto) 0.3 % (0.0-2.0); Eosinophils # (auto) 0 10 ^3/uL (0-0.8); Eosinophils % (auto) 0.4 % (0.0-7.0); Hematocrit 30.5 % (36.0-46.0); Hemoglobin 9.5 g/dL (12.2-16.2); Lymphocytes # (auto) 2.4 10 ^3/uL (0.4-5.4); Lymphocytes % (auto) 27.8 % (10.0-50.0); Mean Corpuscular Hemoglobin 26.7 pg (28.0-32.0); Mean Corpuscular Hgb Conc. 31.3 g/dL (32.0-36.0); Mean Corpuscular Volume 85.5 fL (80.0-100.0); Monocytes # (auto) 0.8 10 ^3/uL (0-1.3); Neutrophils # (auto) 5.3 10 ^3/uL (1.6-8.6); Neutrophils % (auto) 62.5 % (37.0-80.0); Platelet Count (auto) 507 10^3/uL (140-450); Red Blood Cells 3.57 10^6/uL (4.0-5.20); Red Cell Distribution Width 16.9 % (11.8-14.3); White Blood Cell 8.5 10^3/uL (4.4-10.8)
[2023-12-16] MEDS: IBUPROFEN 600 MG TAB PO PRN (16:16)
[2023-12-17 01:00] VITALS: BP 166/86; PULSE 99; RESP 18; TEMP 98.2; O2SAT 95
[2023-12-17 05:00] VITALS: BP 177/85; PULSE 107; RESP 23; TEMP 97.7; O2SAT 98
[2023-12-17] MEDS: cefTRIAXone 1GM/50ML D5W 50 ML IV SCH (08:43)
[2023-12-17] MEDS ORDERED: CIPR-173 PO (10:00)
[2023-12-17 11:00] VITALS: TEMP 36.5
== END 2023-12-17 12:40 | disposition home or self-care (01) | DRG 463 ==
LOC: ER 14:06 → TELE-CENTR 23:29 → TELE 23:29 → TELE-CENTR 12-16 06:29
PROVIDERS: ADMIT Nurse Practitioner Family; ATTEND Family Medicine
DX: N30.00 Acute cystitis without hematuria (principal); E87.20 Acidosis, unspecified; G70.00 Myasthenia gravis without (acute) exacerbation; K22.10 Ulcer of esophagus without bleeding; E11.65 Type 2 diabetes mellitus with hyperglycemia; D75.839 Thrombocytosis, unspecified; E78.5 Hyperlipidemia, unspecified; I10 Essential (primary) hypertension; J98.11 Atelectasis; K25.9 Gastric ulcer, unspecified as acute or chronic, without hemorrhage or perforation; K29.70 Gastritis, unspecified, without bleeding; M43.16 Spondylolisthesis, lumbar region; Z96.653 Presence of artificial knee joint, bilateral; Z79.84 Long term (current) use of oral hypoglycemic drugs; Z79.899 Other long term (current) drug therapy; Z88.8 Allergy status to other drugs, medicaments and biological substances; Z88.5 Allergy status to narcotic agent; Z88.6 Allergy status to analgesic agent; Z87.11 Personal history of peptic ulcer disease
CPT/HCPCS: 36415; 71045; 74176; 80053; 81001; 82962; 83605; 83880; 84484; 85025; 87081; 87086; 93005; G0378; J1815; J2470